=== PATIENT | male | born 1990 | race Hispanic/Latino ===

== ENCOUNTER 2016-11-19 11:31 | Emergency (ER) | payer OTHER ==
[~2016-11-19] VITALS: Ht 167.6 cm; Wt 59.1 kg
[~2016-11-19 11:31] MED LIST: CEFU500T PO; IBUP-1827 PO; no med
[2016-11-19 11:47] VITALS: BP 148/96; PULSE 112; RESP 10; O2SAT 93
--- NOTE | 2016-11-19 12:01 | ED.REPORT ---
HPI-General Illness Date of Service Nov 19, 2016 ED Provider: Cristo Beltran MD Pt is a 26 year old male who presents to the ED with concerns for right ear pain , chills, diarrhea and a headache that started at 0100 this morning. He reports that he was febrile yesterday, but the ear pain started abruptly. He describes the pain as a stabbing pain that has been constant since its onset. Pt reports no significant history. He denies any drainage from his ear, but admits to a green productive cough. He has no other complaints. Nursing Notes Stated Complaint: E EAR PAIN/CHILLS Chief Complaint: General Complaint Nursing Notes Reviewed: Yes Allergies: Coded Allergies: No Known Allergies (Verified Allergy, Unknown, 10/19/15) Scheduled Amoxicillin/Clav K 875-125 mg (Augmentin 875-125 mg) 1 Each Tablet 1 TABLET PO BID Cefuroxime Axetil (Ceftin) 500 Mg Tablet 500 MG PO BID Scheduled PRN Ibuprofen (Ibuprofen) 600 Mg Tablet 600 MG PO QID PRN PRN For Pain Ibuprofen (Ibuprofen) 600 Mg Tablet 600 MG PO QID PRN PRN For Pain Pseudoephedrine (Pseudoephedrine) 30 Mg/5 Ml Liquid 30 MG PO BID PRN PRN For Congestion Miscellaneous Medications ([no med]) General Time Seen by MD: 11:58 Chief Complaint Ear pain Hx Obtained From: Patient, Spouse Sudden in Onset?: Yes Onset Occurred: 9 - 12 hours ago Symptom Duration: Since onset Location: : Ear right Quality: Painful Severity: Current: Moderate Severity: Maximum: Moderate Similar Sx Previous: Yes Past Medical History Past Medical History Healthy Past Surgical History Hernia surgery Smoking History Never Smoker Social History Alcohol Use: Denies alcohol use Drug Use: Denies drug use Other Social History: Good social support, , Local resident Ambulatory Status Independent Review of Systems Full Review of Systems Constitutional: Reports: Chills, Fever, Denies: Malaise, Weakness - generalized Ears / Nose / Throat: Reports: Earache right Respiratory: Reports: Prod cough, green, Denies: Shortness of breath, Wheezing Cardiovascular: Denies: Chest pain, Syncope GI: Denies: Constipation, Nausea, Vomiting Male: Denies Dysuria, Denies Flank pain, Denies Urinary frequency, Denies Urinary urgency Musculoskeletal: Denies: Neck pain Skin: Denies Diaphoresis, Denies Rash Neurologic: Denies: Change LOC, Dizziness, Headache, Syncope, Weakness Complete sys rev & neg: except as marked. Physical Exam Vital Signs Vital Signs Date Time Temp Pulse Resp B/P Pulse Ox O2 Delivery O2 Flow Rate FiO2 11/19/16 13:22 36.7 98 14 148/96 96 Room Air 11/19/16 11:47 37.4 112 10 148/96 93 Initial VS: Reviewed General/Constitutional: Well-developed, Well-nourished Head / Eyes: Atraumatic, Normocephalic, PERRL Neck: Supple, Non-tender, Full range of motion Cardiovascular: Regular rate & rhythm, Heart sounds normal, Intact distal pulses Abdomen / GI: Soft, Non-tender, No guarding, No rebound, No distention Skin: Warm, Dry, No cyanosis Neurologic: Alert, Oriented, Nonfocal Psychiatric: Mood/affect normal, Behavior normal, Normal thought content ENT: Atraumatic, Pharynx NL Left TM is clear, no bulging or effusion Tenderness to palpation about right tragus Bulging and erythematous right TM, appears in tact No drainage No mastoid tenderness No swelling of external canal Respiratory / Chest: Atraumatic, No respiratory distress Coarse breath sounds throughout Re-Eval/Medical Decision Med Decision/Clinical Course Pt is a 26 year old male who presents to the ED with concerns for right ear pain , chills, diarrhea and a headache that started at 0100 this morning. Upon arrival the patient is slightly tachycardic though this resolved in the examination room. He is afebrile and otherwise hemodynamically stable. Examination reveals a bulging/erythematous right tympanic membrane without any evidence of perforation, otitis externa, malignant otitis externa or mastoiditis. There is no evidence of abscess or soft tissue infection. There are no signs of bacterial pharyngitis or peritonsillar abscess. Chest x-ray demonstrates no pneumonia or other acute cardiopulmonary process. He is generally well-appearing. The patient was treated with Toradol for pain. I prescribed Augmentin, ibuprofen and pseudoephedrine for congestion. Follow-up and return precautions were reviewed in detail and he is discharged in good condition. Source of Hx: Old records Time of Eval: 13:00 Re-Evaluation/Progress Note: Pt is rechecked and informed of his imaging results and the plan to discharge him at this time. He understands and agrees, all questions are addressed. Counseled Regarding: Diagnosis, Lab results, When/why to return to ED Discharge & Departure Primary Impression: Otitis media Otitis media type: unspecified Laterality: right Chronicity: unspecified Qualified Code: H66.91 - Otitis media, unspecified, right ear Additional Impressions: Cough Right ear pain Disposition: Home Discharge Condition All VS Reviewed: Yes Condition: Stable Patient Instructions: Otitis Media (ED) Additional Instructions: Thank you for seeking care at emergency room. It is difficult for us to make definitive diagnoses in the ED but we believe that you are experiencing an ear infection. Our primary goal today in the ED was to evaluate you for any life-threatening conditions. Your evaluation was reassuring. You will be discharged with a prescription for antibiotics, ibuprofen for pain and Sudafed for congestion. Please take as directed You should follow-up with your primary doctor in the next week. You should return to the ED immediately if you develop worsening symptoms, fevers, vomiting, cough, shortness of breath, chest pain, lightheadedness, weakness or any other concerning signs or symptoms. Thank you for letting us partake in your care today. Referrals: [facility] Kateryna Attestation Portions of this note were transcribed by Lorena Perkins. I, Dr. Beltran personally performed the history, physical exam and medical decision-making; I reviewed and confirmed the accuracy of the information in the transcribed note. Signed by: Kateryna Knutson, 11/19/2016 [Time]. copies to: [facility] Cristo Beltran MD Nov 19, 2016 12:01 ALISA PERKINS Nov 19, 2016 12:41
[2016-11-19] MEDS ORDERED: AMOX-366 PO (12:40)
[2016-11-19] MEDS ORDERED: PSEU30SY2 PO (12:42)
[2016-11-19] MEDS ORDERED: IBUP-1827 PO (12:42)
--- NOTE | 2016-11-19 13:05 | DRSVH ---
PROCEDURE: X-RAY CHEST, TWO VIEWS ([id number]) INDICATIONS: cough TECHNIQUE: 2 views of the chest were acquired. COMPARISON: [facility], CR, XR CHEST 2VW, 10/12/2016, 0:16. [facility], CR, XR CHEST 2VW, 08/05/2016, 3:06. FINDINGS: Surgical changes and devices: None. Lungs and pleura: No pleural effusions or pneumothorax. Lungs are clear. Mediastinum: Mediastinal contours are normal. Heart size is normal. Bones and chest wall: No suspicious bony abnormalities. Soft tissues appear unremarkable. IMPRESSION: No acute cardiopulmonary disease process. Dictated by: Ronna Joy MD, PhD on 11/19/2016 at 13:04 Approved by: Ronna Joy MD, PhD on 11/19/2016 at 13:04
[2016-11-19 13:22] VITALS: BP 148/96; PULSE 98; RESP 14; O2SAT 96
== END 2016-11-19 12:43 | disposition home or self-care (01) ==
LOC: SED 11:31
DX: H66.91 Otitis media, unspecified, right ear (principal); R05 Cough; R68.83 Chills (without fever); R19.7 Diarrhea, unspecified; R51 Headache

== ENCOUNTER 2016-12-03 05:36 | Emergency (ER) | payer OTHER ==
[~2016-12-03] VITALS: Ht 167.6 cm; Wt 56.8 kg
[~2016-12-03 05:36] MED LIST changes: +AMOX-366 PO; +PSEU30SY2 PO
[2016-12-03 05:44] VITALS: BP 144/70; PULSE 75; RESP 16; O2SAT 99
--- NOTE | 2016-12-03 05:59 | ED.REPORT ---
HPI-Abd Pain M Under 40 Date of Service Dec 03, 2016 ED Provider: Jose De Jesus Garces MD A 26 year old male presents to the ED complaining of epigastric abdominal pain that began 3 days ago. Patient describes the pain as a constant "grabbing". Associated symptoms include vomiting. Patient reports that he uses THC daily. The pain is relieved when the patient takes a shower. He has had 2 similar episodes of pain approx. one month ago. Patient has been unable to sleep because of the pain. He denies diarrhea, hematemesis or current nausea. He denies drinking before symptoms onset. Patient recently had a fever that has since resolved. Nursing Notes Stated Complaint: VOMITING ABDOMINAL PAIN Chief Complaint: Male Abdominal Pain Nursing Notes Reviewed: Yes Allergies: Coded Allergies: No Known Allergies (Verified Allergy, Unknown, 12/03/16) Scheduled PRN Ondansetron ODT (Zofran ODT) 4 Mg Tablet 4 MG PO Q4H PRN PRN For Nausea General Time Seen by MD: 05:54 Chief Complaint Abdominal pain Hx Obtained From: Patient Arrived By: Walk-in Sudden in Onset?: No Onset Occurred: 2 days ago Symptom Duration: Since onset Progression since Onset: Unchanged Location: : Abdomen upper Quality: Painful Radiation: : Does not radiate Severity: Current: Mild Severity: Maximum: Moderate Associated with: Reports: Vomiting, Denies: Diarrhea, Hematemesis Pertinent Negative: Pt denies other symptoms Recent Healthcare: No recent doctor visit, Recent hospitalization (11/2016: Otitis Media ) Past Medical History Past Medical History None reported Past Surgical History Bilateral inguinal hernia repair Smoking History Never Smoker Social History Alcohol Use: "Social" Drug Use: THC (Daily ) Other Social History: Good social support, , Local resident Ambulatory Status Independent Review of Systems Constitutional: Denies: Chills, Fever Respiratory: Denies: Shortness of breath Cardiovascular: Denies: Chest pain GI: Reports: Abdominal pain, Vomiting, Denies: Diarrhea, Hematemesis Complete sys rev & neg: except as marked. Neurologic: Denies: Change LOC Physical Exam Initial Vital Signs Vital Signs (First) Date Time Temp Pulse Resp B/P Pulse Ox O2 Delivery O2 Flow Rate FiO2 12/03/16 05:44 37.0 75 16 144/70 99 Room Air Initial VS: Reviewed Head / Eyes: Atraumatic, Normocephalic, PERRL Extremities: Vascular intact, Neuro intact, No swelling, No tenderness Skin: Warm, Dry, No cyanosis Neurologic: Alert, Oriented, Nonfocal Psychiatric: Mood/affect normal, Behavior normal, Normal thought content General/Constitutional: Awake, Alert Respiratory / Chest: Atraumatic, Breath sounds NL, Breath sounds = bilat Cardiovascular: Heart rate NL, Regular rhythm, Heart sounds NL, No gallop, No murmurs, No rubs Abdomen: Atraumatic, Soft, BS normoactive Tenderness/Guarding/Rebound: Positive: Tender LUQ... (Mild), Tender epigastric Back: Atraumatic, Inspection NL Interpretation & Diagnostics Lab Results Interpretation Result Diagram: 12/03/16 0547 12/03/16 0547 Test 12/03/16 05:47 12/03/16 08:06 White Blood Count 12.9th/mm3 (3.8-10.1) Red Blood Count 4.63mil/mm3 (4.40-5.80) Hemoglobin 12.3g/dL (13.8-17.2) Hematocrit 37.3% (41.0-50.0) Mean Corpuscular Volume 80.6fL (81-100) Mean Corpuscular Hemoglobin 26.6pg (27.0-35.0) Mean Corpuscular Hemoglobin Concent 33.0% (32.0-37.0) Red Cell Distribution Width 13.2% (12.3-15.4) Platelet Count 643bil/L (150-400) Neutrophils (%) (Auto) 65.0% (40-74) Lymphocytes (%) (Auto) 23.8% (14-46) Monocytes (%) (Auto) 7.7% (4-12) Eosinophils (%) (Auto) 3.1% (0-5) Basophils (%) (Auto) 0.2% (0-3) Sodium Level 138mEq/L (134-144) Potassium Level 3.8mEq/L (3.5-5.2) Chloride Level 102mEq/L (97-108) Carbon Dioxide Level 27mmol/L (18-29) Blood Urea Nitrogen 16mg/dL (6-20) Creatinine 0.65mg/dL (0.76-1.27) Estimat Glomerular Filtration Rate 155mL/min (>59) Glucose Level 111mg/dL (60-99) Calcium Level 9.4mg/dL (8.5-10.1) Magnesium Level 1.7mg/dL (1.6-2.6) Total Bilirubin 0.2mg/dL (0.0-1.2) Aspartate Amino Transf (AST/SGOT) 21U/L (0-50) Alanine Aminotransferase (ALT/SGPT) 31U/L (0-44) Alkaline Phosphatase 132U/L (25-150) Total Protein 7.5g/dL (6.4-8.4) Albumin 3.5g/dL (3.4-5.0) Lipase 31U/L (13-60) Hold Kaur Top Tube Received (Received) Hold Urine Received (Received) Lab Results Interpretation: Urine Dip SP [place]: 1.005 Otherwise unremarkable Re-Eval/Medical Decision Re-Evaluation/Progress : Time of Eval: 07:45 Patient Status: Condition improved Re-Evaluation/Progress Note: Patient is rechecked. He is informed of his lab results and diagnosis. All of the patient's questions are addressed. He understands and agrees with the treatment plan. Counseled Regarding: Diagnosis, Lab results, Need for follow-up, When/why to return to ED Patient Discharge & Departure Primary Impression: Cannabinoid hyperemesis syndrome Disposition: Home Discharge Condition All VS Reviewed: Yes Condition: Stable Patient Instructions: Acute Abdominal Pain (ED) Additional Instructions: Emergency department evaluation today included review, examination and labs. Labs are reassuring. History is highly suggestive of episodic nausea and vomiting related to use of cannabis. Advised discontinuing use of cannabis. Follow-up with [facility] resident's clinic for primary care. May use ondansetron as needed for nausea and vomiting, return to the emergency department for vomiting uncontrolled by ondansetron. Referrals: [facility] (PCP) [facility] Scribe Attestation Portions of this note were transcribed by Denise Cummings. I, Dr. Garces personally performed the history, physical exam and medical decision-making; I reviewed and confirmed the accuracy of the information in the transcribed note. Signed by: Kateyrna Sigala, 12/03/16 0832. Jose De Jesus Garces MD Dec 03, 2016 05:59 DENISE CUMMINGS Dec 03, 2016 06:07
[2016-12-03 06:08] LABS: BASOPHILS % (AUTO) 0.2 % (0-3); EOSINOPHILS % (AUTO) 3.1 % (0-5); MONOCYTES % (AUTO) 7.7 % (4-12); Mean Corpuscular Hemoglobin 26.6 pg (27.0-35.0); Mean Corpuscular Volume 80.6 fL (81-100); Platelet Count 643 bil/L (150-400)
[2016-12-03] MEDS ORDERED: 0.9% Sodium Chloride 1,000 ML IV ONE (06:20)
[2016-12-03 06:23] LABS: Magnesium 1.7 mg/dL (1.6-2.6)
[2016-12-03] MEDS ORDERED: ONDA4TAB9 PO (07:49)
[2016-12-03 08:24] VITALS: BP 131/72; PULSE 79; RESP 15; O2SAT 98
== END 2016-12-03 07:49 | disposition home or self-care (01) ==
LOC: SED 05:36
DX: F12.288 Cannabis dependence with other cannabis-induced disorder (principal); R11.10 Vomiting, unspecified; R10.13 Epigastric pain
CPT/HCPCS: 36415; 80053; 83690; 83735; 85025; 99284; J7030

== ENCOUNTER 2017-05-03 09:03 | Emergency (ER) | payer OTHER ==
[~2017-05-03] VITALS: Ht 170.2 cm; Wt 63.6 kg
[~2017-05-03 09:03] MED LIST changes: -AMOX-366 PO; -CEFU500T PO; -IBUP-1827 PO; +ONDA4TAB9 PO; -PSEU30SY2 PO; -no med
[2017-05-03 09:06] VITALS: BP 138/90; PULSE 101; RESP 14; O2SAT 98
--- NOTE | 2017-05-03 09:16 | ED.REPORT ---
HPI-Eye Problem Date of Service May 03, 2017 ED Provider: Dr. Pérez Pt is a healthy 26 y/o male presenting to the ED c/o right eye crusting onset yesterday. He c/o associated blurry vision, mild swelling, clear discharge, burning pain, itchiness. He states his left eye is beginning to experience the same symptoms today. He denies cough, nasal congestion, fever, apparent foreign body. The patient does not work with metal. Nursing Notes Stated Complaint: SWOLLEN RT EYE Chief Complaint: Eye Nursing Notes Reviewed: Yes Allergies: Coded Allergies: No Known Allergies (Verified Allergy, Unknown, 12/03/16) Scheduled Naphazoline HCl/Pheniramine (Allergy Eye Drops) 0.025 %-0.3 % Drops 15 ML OP QID General Time Seen by MD: 09:16 Chief Complaint Right eye affected Hx Obtained From: Patient Arrived By: Walk-in Sudden in Onset?: No Onset Occurred: Yesterday Symptom Duration: Since onset Progression Since Onset: Constant Location: : Eye right Quality: Burning, Painful Severity: Current: Mild Severity: Maximum: Mild Recent Healthcare: No recent doctor visit, No recent hospitalization Similar Sx Previous: No Past Medical History Past Medical History None reported Past Surgical History Bilateral inguinal hernia repair ORIF right hand Smoking History Never Smoker Social History Alcohol Use: "Social" Drug Use: THC Other Social History: Good social support, , Local resident Ambulatory Status Independent Review of Systems Constitutional: Denies: Chills, Fever Eyes: Reports: Blurred right, Discharge right Ears / Nose / Throat: Denies: Nasal congestion Complete sys rev & neg: except as marked. Respiratory: Denies: Non-productive cough, Shortness of breath Physical Exam Initial Vital Signs Vital Signs (First) Date Time Temp Pulse Resp B/P Pulse Ox O2 Delivery O2 Flow Rate FiO2 05/03/17 09:06 36.4 101 14 138/90 98 Room Air Initial VS: Reviewed, Vital signs abnormal ENT: Mucous membranes moist, Conjunctiva normal, No scleral icterus Neck: Supple, Full range of motion Respiratory: Breath sounds normal, Clear to auscultation, No respiratory distress Cardiovascular: Regular rate & rhythm, Heart sounds normal, Intact distal pulses Abdomen / GI: Soft, Non-tender Extremities: Vascular intact, Neuro intact, No swelling Skin: Warm, Dry, No cyanosis Neurologic: Alert, Oriented, Nonfocal Psychiatric: Mood/affect normal, Behavior normal, Normal thought content Head / Eyes: Atraumatic, Normocephalic, PERRL, EOMI, No periorbital swelling, No photophobia Diffusely erythematous with conjunctival erythema right greater than left. No foreign body No evidence of trauma No corneal abrasion Re-Eval/Medical Decision Med Decision/Clinical Course 26-year-old male with right greater than left eye redness 1 day. Started with right eye now with left. Reports some right eye pain but no foreign body sensation. His visual acuity is normal. His fluorescein is negative. No evidence of bacterial conjunctivitis. Likely viral conjunctivitis. Will treat with topical antihistamine drops. Return precautions given and any signs of bacterial conjunctivitis, blurry vision, worsening pain, any other new or worsening symptoms. Primary doctor 1-2 days if symptoms not improved. Also provided number for ophthalmology should any new or worsening symptoms or concerning symptoms start as counseled. Re-Evaluation/Progress : Time of Eval: 10:56 Re-Evaluation/Progress Note: Pt rechecked. Informed pt of plan for treatment. Pt understands and agrees with plan for treatment. F/U instructions and RTER warnings given. All questions addressed. Counseled Regarding: Diagnosis, Need for follow-up, When/why to return to ED Discharge & Departure Primary Impression: Viral conjunctivitis of both eyes Disposition: Home Discharge Condition All VS Reviewed: Yes Condition: Stable Patient Instructions: Conjunctivitis (ED) Additional Instructions: I suspect you have a viral conjunctivitis, an infection around the eye. This is commonly called "pink eye". This is not dangerous and typically improves with time. Use the eyedrops as directed. Wash your hands after touching your eyes to prevent spreading of disease. Return to the ED if you experience green discharge with lasts throughout the day , high fever, worsening vision, worsening pain, or for other concerning symptoms. If your symptoms persist, contact [facility] to make an appointment to be seen by a specialist. [facility] Scribe Attestation Portions of this note were transcribed by Urbano Germain. I, Dr. Pérez personally performed the history, physical exam and medical decision-making; I reviewed and confirmed the accuracy of the information in the transcribed note. Signed by Kateryna Cronin, 05/03/17 - 1000 Alfonso Pérez MD May 03, 2017 09:16 URBANO GERMAIN May 03, 2017 09:55
[2017-05-03] MEDS ORDERED: Fluorescein 0.6 mg Ophthalmic Strip ONE (10:02)
[2017-05-03] MEDS ORDERED: Tetracaine 0.5% 4 mL Ophthalmic Solution ONE (10:03)
[2017-05-03] MEDS ORDERED: NAPH15DR63 OP (10:59)
[2017-05-03 11:08] VITALS: BP 128/83; PULSE 98; RESP 16; O2SAT 98
== END 2017-05-03 11:09 | disposition home or self-care (01) ==
LOC: SED 09:03
DX: B30.9 Viral conjunctivitis, unspecified (principal)